=== PATIENT | female | born 1930 | race Caucasian/White ===

== ENCOUNTER 2017-07-03 09:52 | Emergency (ER) | payer OTHER ==
[2017-07-03 10:20] VITALS: BMI 22.4
--- NOTE | 2017-07-03 10:32 | PDOC ---
Attending Attestation - HPI HPI: 07/03/17 11:54 The patient is a 86-year-old female with a significant past medical history of Burkitts-like lymphoma, hypothyroidism, hypertension, congestive heart failure, osteoporosis, hiatal hernia, and cerebrovascular accident, who presents to the emergency department after sustaining a left arm injury s/p fall at [facility] yesterday evening. Patient reports she remembers falling onto the floor while walking back to her room after dinner. She does not recall why or how she fell. Patient and daughter are unsure if there was loss of consciousness. Patient complains of pain, swelling, deformity, and bruising at the left elbow and humerus. XRays of the left upper extremity were taken at [facility] and Tylenol was given there. The daughter reports the patient, who ambulates with a walker at baseline, has developed a left drop foot over the last few months. The patient denies chest pain, shortness of breath, headache and dizziness. The patient denies fever, chills, nausea, vomit, diarrhea, constipation, or urinary changes. - Physicial Exam PE: 07/03/17 11:55 Vitals: Triage Vital signs reviewed General Appearance: no acute distress, well nourished well developed, Head: Atraumatic, normocephalic Eyes: Pupils equal reactive round, extraocular movement intact Neck: Supple;No Nuchal rigidity Chest Wall: Nontender Cardiac: Regular rate and rhythm, no murmurs, no rubs, no gallops, Lungs: Clear to auscultation bilateral, good air movement bilaterally, Abdomen: Soft, nondistended, normal bowel sounds, nontender to palpation Extremities: (+) Left elbow swollen, otherwise neurovascularly intact. No cyanosis or clubbing Skin: Warm and dry, no rashes or lesions, no petechiae Neuro: AOX3; Cranial Nerves 2-12 grossly intact, Sensation intact to all extremities Psych: normal mood, normal affect - Medical Decision Making 07/03/17 14:07 Dr. Arnold/Kingston (ortho) paged at 1:07pm, 1:31pm, 1:42 pm, 2:07 pm. Waiting for call back. 07/03/17 14:17 Ortho returned the call at 2:16pm. Case was discussed. <Lottie Kapoor - Last Filed: 07/03/17 14:17> - Resident Resident Name: Ady Ramos - ED Attending Attestation I have performed the following: I have examined & evaluated the patient, The case was reviewed & discussed with the resident, I agree w/resident's findings & plan, Exceptions are as noted - Medical Decision Making 86-year-old female with a significant past medical history of Burkitts-like lymphoma, hypothyroidism, hypertension, congestive heart failure, osteoporosis, hiatal hernia, and cerebrovascular accident, who presents to the emergency department after sustaining a left arm injury s/p fall at [facility] yesterday evening onto her left elbow with significant swelling to left elbow and left humerus. X-rays ordered labs ordered head CT ordered EKG performed at 1102amdemonstrates rate of 82, rhythm of sinus, axis equal to normal. No ST elevations no T-wave inversions Interpreted by me All other labs and imaging reviewed no acute findings noted Olecranon fracture. Case discussed with Dr. Onofre orthopedics. Normally this is a operative management with this type of fracture however after long discussion with daughter given up to 8-12 weeks of recovery time and the requirement for an active patient in PT daughter feels that patient may not be the best candidate at this time for surgery. At this time will place patient in a posterior splint initiate conservative measures she will follow-up with Dr. Onofre in his office to discuss surgical versus conservative management Greater than 20 minutes spent discussing options with family. Daughter who is healthcare proxy for patient does not want patient to be admitted to hospital overnight she will return to [facility]. They will follow-up with her doctor there they will return to the emergency department for any severe worsening symptoms or for any concerns. <Curtis Storm - Last Filed: 07/03/17 19:10>
--- NOTE | 2017-07-03 10:47 | PDOC ---
History of Present Illness - General History Source: Patient, Family Exam Limitations: No Limitations - History of Present Illness Initial Comments: 07/03/17 10:41 Patient is an 86F with history of lymphoma s/p chemotherapy, hypothyroidism, CVA , HTN, CHF here today complaining of elbow pain after a fall. Patient fell last [facility] at [facility]. Patient states that she was using her walker to move when she fell, but she does not remember what happened to cause her fall. Patient denies any confusion after the fall. Denies chest pain, shortness of breath. Denies head trauma, headache, neck pain. Denies pain in her abdomen, arms, legs, hips, pelvis. <Ady Ramos - Last Filed: 07/03/17 15:35> <Curtis Storm - Last Filed: 07/03/17 17:27> - General Chief Complaint: Injury Stated Complaint: FALL Time Seen by Provider: 07/03/17 10:16 Past History - Past Medical History Cancer: (Burkitt Lymphoma,diffuse large B-Cell lymphoma) COPD: No GI Disorders: Yes (GERD) HTN: Yes Psychiatric Problems: (Failure to thrive) Thyroid Disease: Yes (hypothryroidsm) Other medical history: Osteoporois,Muscle weakness - Suicide/Smoking/Psychosocial Hx Smoking History: Never smoked Information on smoking cessation initiated: No Hx Alcohol Use: No Drug/Substance Use Hx: No Substance Use Type: None <Ady Ramos - Last Filed: 07/03/17 15:35> <Curtis Storm - Last Filed: 07/03/17 17:27> - Past Medical History Allergies/Adverse Reactions: Allergies Allergy/AdvReac Type Severity Reaction Status Date / Time dapsone Allergy Verified 07/03/17 10:43 phenazopyridine Allergy Verified 07/03/17 10:43 Sulfa (Sulfonamide Allergy Verified 07/03/17 10:43 Antibiotics) tetracycline Allergy Verified 07/03/17 10:43 endomethacin Allergy Uncoded 07/03/17 10:43 Home Medications: Ambulatory Orders Acetaminophen [Tylenol] 650 mg PO HS 07/03/17 Aspirin [ASA -] 81 mg PO DAILY 07/03/17 Cholecalciferol (Vitamin D3) [Vitamin D3] 1,000 unit PO DAILY 07/03/17 Cyanocobalamin (Vitamin B-12) [Vitamin B-12] 1,000 mcg PO DAILY 07/03/17 Furosemide 20 mg PO ASDIR 07/03/17 Homatropine HBr 5% Ophth Soln [Isopto Homatropine] 1 drop OD Q12H 07/03/17 Ipratropium 0.02% Nebulizer [Atrovent *Nebulizer*] 0.5 mg IH Q5H PRN 07/03/17 Levothyroxine [Synthroid -] 25 mcg PO DAILY 07/03/17 Lisinopril [Zestril] 7.5 mg PO DAILY 07/03/17 Magnesium 400 mg PO DAILY 07/03/17 Megestrol Acetate 400 mg PO DAILY 07/03/17 Metoprolol Succinate 50 mg PO DAILY 07/03/17 Ramelteon [Rozerem] 8 mg PO HS 07/03/17 Saccharomyces Boulardii [Probiotic] 250 mg PO DAILY 07/03/17 Review of Systems - Review of Systems Comments:: 07/03/17 11:02 GENERAL/CONSTITUTIONAL: No fever or chills. No weakness. CARDIOVASCULAR: No chest pain or shortness of breath RESPIRATORY: No cough, wheezing, or hemoptysis. GASTROINTESTINAL: No nausea, vomiting, diarrhea or constipation. GENITOURINARY: No dysuria, frequency, or change in urination. MUSCULOSKELETAL: Positive for left elbow pain. No neck or back pain. SKIN: No rash NEUROLOGIC: No headache, vertigo, loss of consciousness, or change in strength/ sensation. ENDOCRINE: No increased thirst. No abnormal weight change ALLERGIC/IMMUNOLOGIC: No hives or skin allergy. <Ady Ramos - Last Filed: 07/03/17 15:35> *Physical Exam - Vital Signs Last Vital Signs Temp Pulse Resp BP Pulse Ox 98.6 F 82 17 141/86 95 07/03/17 10:15 07/03/17 10:15 07/03/17 10:15 07/03/17 10:15 07/03/17 10:15 - Physical Exam Comments: 07/03/17 11:03 GENERAL: Awake, alert, and fully oriented, in no acute distress L ARM: Neurovascularly intact distal to injury, ecchymosis over posterior elbow with deformity. Nontender shoulder, wrist. HEAD: No signs of trauma, normocephalic, atraumatic EYES: PERRLA, EOMI, sclera anicteric, conjunctiva clear ENT: Auricles normal inspection, hearing grossly normal, nares patent, oropharynx clear without exudates. Moist mucosa NECK: Normal ROM, supple, no lymphadenopathy, JVD, or masses, no midline tenderness LUNGS: No distress, speaks full sentences, clear to auscultation bilaterally HEART: Regular rate and rhythm, normal S1 and S2, no murmurs, rubs or gallops, peripheral pulses normal and equal bilaterally. ABDOMEN: Soft, nontender, normoactive bowel sounds. No guarding, no rebound. No masses EXTREMITIES OTHER THAN LEFT ARM: Normal inspection, Normal range of motion, no edema. No clubbing or cyanosis. NEUROLOGICAL: Cranial nerves II through XII grossly intact. Normal speech, no focal sensorimotor deficits SKIN: Warm, Dry, normal turgor, no rashes or lesions noted. <Ady Ramos - Last Filed: 07/03/17 15:35> - Vital Signs Last Vital Signs Temp Pulse Resp BP Pulse Ox 98.2 F 85 17 141/80 96 07/03/17 14:31 07/03/17 14:31 07/03/17 14:31 07/03/17 14:31 07/03/17 14:31 <Curtis Storm - Last Filed: 07/03/17 17:27> Procedures - Splinting Splint Location: Left: Elbow Pre-Proc Neuro Vasc Exam: normal Hand-Made Type: orthoglass Splint Type: Yes: Posterior Post-Proc Neuro Vasc Exam: unchanged from pre-exam Brock Bandage: 4" Sling: Yes Complications: No Post splint xray: No Good repositioning: Yes Progress: 07/03/17 15:21 Procedure tolerated without complication <Ady Ramos - Last Filed: 07/03/17 15:35> ED Treatment Course - LABORATORY CBC & Chemistry Diagram: 07/03/17 10:44 07/03/17 10:44 - RADIOLOGY Radiology Studies Ordered: Category Date Time Status CERVICAL SPINE CT W/O CONTR [CT] Stat CT Scan 07/03/17 10:[address] WITHOUT CONTRAST [CT] Stat CT Scan 07/03/17 10:29 Ordered CHEST X-RAY PORTABLE* [RAD] Stat Radiology 07/03/17 10:29 Ordered ELBOW-LEFT [RAD] Stat Radiology 07/03/17 10:29 Ordered FOREARM- LEFT [RAD] Stat Radiology 07/03/17 10:29 Ordered HUMERUS-LEFT [RAD] Stat Radiology 07/03/17 10:29 Ordered SHOULDER-LEFT [RAD] Stat Radiology 07/03/17 10:29 Ordered WRIST W/HAND-LEFT* [RAD] Stat Radiology 07/03/17 10:29 Ordered <Ady Ramos - Last Filed: 07/03/17 15:35> - LABORATORY CBC & Chemistry Diagram: 07/03/17 10:44 07/03/17 10:44 - ADDITIONAL ORDERS Additional order review: Laboratory Results 07/03/17 07/03/17 07/03/17 13:10 10:44 10:44 PT with INR 12.00 H INR 1.06 Sodium 143 Potassium 5.0 Chloride 109 H Carbon Dioxide 22 Anion Gap 12 BUN 35 H Creatinine 1.2 H Creat Clearance w eGFR 42.40 Random Glucose 85 Calcium 8.7 Magnesium 2.2 Total Bilirubin 0.9 AST 28 ALT 20 Alkaline Phosphatase 54 Creatine Kinase 82 Troponin I 0.02 Total Protein 6.1 L Albumin 3.6 Urine Color Ltyellow Urine Appearance Clear Urine pH 6.0 Ur Specific [place] 1.018 Urine Protein Negative Urine Glucose (UA) Negative Urine Ketones Negative Urine Blood Negative Urine Nitrite Negative Urine Bilirubin Negative Urine Urobilinogen Negative Ur Leukocyte Esterase Negative 07/03/17 10:44 RBC 3.41 L MCV 103.9 H MCHC 33.9 RDW 15.9 H MPV 7.8 Neutrophils % 69.3 Lymphocytes % 17.1 Monocytes % 12.8 H Eosinophils % 0.2 Basophils % 0.6 - Medications Given in the ED: ED Medications Discontinued Medications Generic Name Dose Route Start Last Admin Trade Name Freq PRN Reason Stop Dose Admin Acetaminophen 1,000 mg 07/03/17 14:50 07/03/17 15:00 Ofirmev Injection - IVPB 07/03/17 14:51 1,000 mg ONCE ONE Administration Tramadol HCl 50 mg 07/03/17 15:09 07/03/17 15:13 Ultram - PO 07/03/17 15:10 50 mg ONCE ONE Administration <Curtis Storm - Last Filed: 07/03/17 17:27> Medical Decision Making - Medical Decision Making 07/03/17 11:05 Patient is an 86F with history of lymphoma, hypothyroidism, htn, chf, osteoporosis, cva here today with probable left elbow fracture. Patient was fully undressed and examined for additional injuries, no evidence of additional injuries were found. Vital signs stable and normal. History concerning for unknown etiology of fall. Will do cbc, cmp, trop, ekg, cxr, pt/inr, type and screen for possible cardiac etiology. Will evaluate arm with x-rays of shoulder , elbow, wrist. Will also do head and cervical spine CT. EKG shows normal sinus rhythm, normal rate 82. No st elevations/depressions. No significant t wave inversions. Normal ND/QRS/QTc intervals. 07/03/17 12:39 Laboratory Tests 07/03/17 07/03/17 07/03/17 10:44 10:44 10:44 WBC 8.6 Hgb 12.0 Hct 35.5 Plt Count 213 INR 1.06 BUN 35 H Creatinine 1.2 H Creat Clearance w eGFR 42.40 Troponin I 0.02 CBC normal. INR normal. CMP shows decreased kidney function. Trop detectable but not above threshold. XR, CT pending. 07/03/17 13:[address] negative for acute pathology. 07/03/17 13:46 X-rays show fracture of proximal ulna. Shoulder x-ray normal. Chest, wrist pending. 07/03/17 13:59 X-rays of chest and wrist show no acute process. 07/03/17 15:35 Splinted elbow in posterior splint, patient's pain controlled. Placed in splint. <Ady Ramos - Last Filed: 07/03/17 15:35> *DC/Admit/Observation/Transfer - Discharge Dispostion Admit: No <Ady Ramos - Last Filed: 07/03/17 15:35> <Curtis Storm - Last Filed: 07/03/17 17:27> Diagnosis at time of Disposition: Ulna fracture - Discharge Dispostion Disposition: HOME Condition at time of disposition: Stable - Referrals Referrals: Carmine Haas MD [Primary Care Provider] - Cash Onofre MD [Staff Physician] - - Patient Instructions Printed Discharge Instructions: How to Use a Sling, Elbow Fracture Additional Instructions: Please follow up with Dr Onofre from orthopedics next week. Please avoid using your left arm. Please have staff assist with transfers. Out of bed to chair with assistance Use ice 20 min on 20 min off and tylenol as directed on package to help control your pain. Please return if you have any new, worsening, or concerning symptoms. Please follow up with Dr Haas concerning the reason for your fall.
[2017-07-03 11:06] LABS: BASO % 0.6 % (0-2.0); EOS % 0.2 % (0-4.5); HEMATOCRIT 35.5 % (32.4-45.2); LYMPH % 17.1 % (8-40); MCH 35.3 pg (25.7-33.7); MCHC 33.9 g/dl (32.0-36.0); MEAN CELL VOLUME 103.9 fl (80-96); MEAN PLT VOLUME 7.8 fl (7.5-11.1); MONO % 12.8 % (3.8-10.2); NEUT % 69.3 % (42.8-82.8); PLATELET COUNT 213 K/MM3 (134-434); RBC 3.41 M/mm3 (3.60-5.2); RDW 15.9 % (11.6-15.6); WHITE BLOOD COUNT 8.6 K/mm3 (4.0-10.0)
[2017-07-03 11:15] LABS: INR 1.06 (0.82-1.09)
[2017-07-03 11:39] LABS: ALBUMIN 3.6 g/dl (3.4-5.0); ANION GAP 12 (8-16); BILIRUBIN,TOTAL 0.9 mg/dL (0.2-1.0); BLOOD UREA NITROGEN 35 mg/dL (7-18); CALCIUM 8.7 mg/dL (8.5-10.1); CHLORIDE 109 mmol/L (98-107); CO2 22 mmol/L (21-32); CREATININE 1.2 mg/dL (0.55-1.02); GLUCOSE,RANDOM 85 mg/dL (74-106); SGPT/ALT 20 U/L (12-78); SODIUM 143 mmol/L (136-145); TOT PROT 6.1 g/dl (6.4-8.2)
[2017-07-03 11:42] LABS: ALK PHOS 54 U/L (45-117); MAGNESIUM 2.2 mg/dL (1.8-2.4); SGOT/AST 28 U/L (15-37)
[2017-07-03] MEDS ORDERED: traMADol HCL 50 MG TABLET ONE (13:11)
[2017-07-03 13:22] LABS: URINE APPEARANCE CLEAR; URINE BILIRUBIN NEGATIVE (NEGATIVE); URINE BLOOD NEGATIVE (NEGATIVE); URINE COLOR LTYELLOW; URINE GLUCOSE (UA) NEGATIVE (NEGATIVE); URINE KETONE NEGATIVE (NEGATIVE); URINE LEUK ESTERASE NEGATIVE (NEGATIVE); URINE NITRITE NEGATIVE (NEGATIVE); URINE PROTEIN NEGATIVE (NEGATIVE); URINE UROBILINOGEN NEGATIVE mg/dL (0.2-1.0)
[2017-07-03 14:32] VITALS: BP 141/80; PULSE 85; TEMP 98.2
[2017-07-03] MEDS ORDERED: ACETAMINOPHEN 1000 MG/100 ML VIAL (NON FORMULARY) IVPB ONE (14:50)
[2017-07-03] MEDS ORDERED: ACETAMINOPHEN INJECTION 100 ML IVPB ONE (14:53)
[2017-07-03] MEDS ORDERED: traMADol HCL 50 MG TABLET PO ONE (15:09)
--- NOTE | 2017-07-04 10:58 | EKG ---
Test Reason : Blood Pressure : / mmHG Vent. Rate : 082 BPM Atrial Rate : 082 BPM P-R Int : 180 ms QRS Dur : 068 ms QT Int : 398 ms P-R-T Axes : 043 002 060 degrees QTc Int : 464 ms SINUS RHYTHM WITH PREMATURE ATRIAL COMPLEXES OTHERWISE NORMAL ECG NO PREVIOUS ECGS AVAILABLE Confirmed by SHIN CASTILLO MD ([id number]) on 07/04/2017 10:58:00 AM Referred By: Confirmed By:SHIN CASTILLO MD
== END 2017-07-03 19:28 | disposition home or self-care (01) ==
LOC: JER 09:52
PROC: 3E033NZ Introduction of Analgesics, Hypnotics, Sedatives into Peripheral Vein, Percutaneous Approach (ICD-10-PCS; principal; 2017-07-03)
DX: W18.39XA Other fall on same level, initial encounter (principal); Y93.89 Activity, other specified; Y92.129 Unspecified place in nursing home as the place of occurrence of the external cause; C85.90 Non-Hodgkin lymphoma, unspecified, unspecified site; E03.9 Hypothyroidism, unspecified; Z86.73 Personal history of transient ischemic attack (TIA), and cerebral infarction without residual deficits; I10 Essential (primary) hypertension; I50.9 Heart failure, unspecified
CPT/HCPCS: 36415; 70450-TC; 71045-TC-FY; 72125-TC; 73030-TC-LT-FY; 73060-TC-LT-FY; 73070-TC-LT-FY; 73090-TC-LT-FY; 73110-TC-LR-FY; 73130-TC-LR-FY; 80053; 81003; 82550; 83735; 84484; 85025; 85610; 93005; 93010; 99283-25

== ENCOUNTER 2017-07-19 13:47 | Emergency (ER) | payer OTHER ==
[2017-07-19 14:01] VITALS: TEMP 97.8; BMI 24.6
[2017-07-19] MEDS ORDERED: SODIUM CHLORIDE 1,000 ML IV STA (14:23)
[2017-07-19] MEDS ORDERED: FAMOTIDINE IV 20 MG/12 ML VIAL IVPB ONE (14:24)
--- NOTE | 2017-07-19 14:28 | PDOC ---
History of Present Illness - General Chief Complaint: Chest Pain Stated Complaint: CHEST PAIN Time Seen by Provider: 07/19/17 14:16 History Source: Patient Exam Limitations: No Limitations - History of Present Illness Initial Comments: 07/19/17 14:29 Patient is an 87F history of lymphoma s/p chemotherapy, hypothyroidism, CVA, HTN , CHF here today complaining of epigastric pain that started 2 hours ago and was relieved by mylanta. She currently has no symptoms. She describes the pain as epigastric burning sensation. Denies fevers, chills, chest pain, vomiting. She does state that she's been eating less lately because her stomach has been irritated. Patient was see for an olecranon fracture in the ED several weeks ago , and she decided against surgery for the fracture. Denies leg swelling. Past History - Past Medical History Allergies/Adverse Reactions: Allergies Allergy/AdvReac Type Severity Reaction Status Date / Time dapsone Allergy Verified 07/19/17 15:49 phenazopyridine Allergy Verified 07/19/17 15:49 Sulfa (Sulfonamide Allergy Verified 07/19/17 15:49 Antibiotics) tetracycline Allergy Verified 07/19/17 15:49 endomethacin Allergy Uncoded 07/19/17 15:49 Home Medications: Ambulatory Orders Acetaminophen [Tylenol] 650 mg PO HS 07/03/17 Aspirin [ASA -] 81 mg PO DAILY 07/03/17 Cholecalciferol (Vitamin D3) [Vitamin D3] 1,000 unit PO DAILY 07/03/17 Cyanocobalamin (Vitamin B-12) [Vitamin B-12] 1,000 mcg PO DAILY 07/03/17 Furosemide 20 mg PO ASDIR 07/03/17 Homatropine HBr 5% Ophth Soln [Isopto Homatropine] 1 drop OD Q12H 07/03/17 Ipratropium 0.02% Nebulizer [Atrovent *Nebulizer*] 0.5 mg IH Q5H PRN 07/03/17 Levothyroxine [Synthroid -] 25 mcg PO DAILY 07/03/17 Lisinopril [Zestril] 7.5 mg PO DAILY 07/03/17 Magnesium 400 mg PO DAILY 07/03/17 Megestrol Acetate 400 mg PO DAILY 07/03/17 Metoprolol Succinate 50 mg PO DAILY 07/03/17 Ramelteon [Rozerem] 8 mg PO HS 07/03/17 Saccharomyces Boulardii [Probiotic] 250 mg PO DAILY 07/03/17 Acetaminophen [Tylenol] 650 mg PO HS 07/19/17 Metoprolol Succinate 50 mg PO DAILY 07/19/17 Multivitamin [One Daily] 1 cap PO DAILY 07/19/17 Pantoprazole Sodium 40 mg PO DAILY 07/19/17 Saccharomyces Boulardii [Probiotic] 250 mg PO DAILY 07/19/17 Sennosides [Senna] 2 tab PO HS 07/19/17 Cancer: (Burkitt Lymphoma,diffuse large B-Cell lymphoma) COPD: No GI Disorders: Yes (GERD) HTN: Yes Psychiatric Problems: (Failure to thrive) Thyroid Disease: Yes (hypothryroidsm) - Suicide/Smoking/Psychosocial Hx Smoking History: Never smoked Hx Alcohol Use: No Drug/Substance Use Hx: No Substance Use Type: None Review of Systems - Review of Systems Comments:: 07/19/17 14:31 GENERAL/CONSTITUTIONAL: No fever or chills. No weakness. HEAD, EYES, EARS, NOSE AND THROAT: No change in vision. No sore throat. CARDIOVASCULAR: No chest pain or shortness of breath RESPIRATORY: No cough, wheezing, or hemoptysis. GASTROINTESTINAL: No nausea, vomiting, diarrhea or constipation. GENITOURINARY: No dysuria, frequency, or change in urination. MUSCULOSKELETAL: No joint or muscle swelling or pain. No neck or back pain. SKIN: No rash NEUROLOGIC: No headache, vertigo, loss of consciousness, or change in strength/ sensation. ENDOCRINE: No increased thirst. No abnormal weight change ALLERGIC/IMMUNOLOGIC: No hives or skin allergy. *Physical Exam - Vital Signs Last Vital Signs Temp Pulse Resp BP Pulse Ox 97.8 F 113 H 18 104/68 100 07/19/17 13:59 07/19/17 13:59 07/19/17 13:59 07/19/17 13:59 07/19/17 13:59 - Physical Exam Comments: 07/19/17 14:34 GENERAL: Awake, alert, and fully oriented, in arm sling L ARM: Old bruising on hand, wrapped, no pain reported HEAD: No signs of trauma, normocephalic, atraumatic EYES: PERRLA, EOMI, sclera anicteric, conjunctiva clear ENT: Auricles normal inspection, hearing grossly normal, nares patent, oropharynx clear without exudates. Dry mucosa NECK: Normal ROM, supple, no lymphadenopathy, JVD, or masses LUNGS: No distress, speaks full sentences, clear to auscultation bilaterally HEART: Regular rate and rhythm, normal S1 and S2, no murmurs, rubs or gallops, peripheral pulses normal and equal bilaterally. ABDOMEN: Soft, nontender, normoactive bowel sounds. No guarding, no rebound. No masses EXTREMITIES: Normal inspection, Normal range of motion, no edema. No clubbing or cyanosis. NEUROLOGICAL: Cranial nerves II through XII grossly intact. Normal speech, no focal sensorimotor deficits SKIN: Warm, Dry, normal turgor, no rashes or lesions noted. Heart Score/ECG Review - History History: Slightly suspicious - Electrocardiogram EKG: Normal - Age Age: >/= 65 - Risk Factors Risk Factors Heart Score: Yes Hx Hypertension Based on the list above the patient has:: 1-2 risk factors - Troponin Troponin: </= normal limit - Score Heart Score - Total: 3 ED Treatment Course - LABORATORY CBC & Chemistry Diagram: 07/19/17 15:20 07/19/17 15:20 - RADIOLOGY Radiology Studies Ordered: Category Date Time Status CHEST X-RAY PORTABLE* [RAD] Stat Radiology 07/19/17 14:23 Ordered Medical Decision Making - Medical Decision Making 07/19/17 14:36 Patient is 87F with history of NHL, CHF, HTN, recent olecranon fracture here today with epigastric abdominal pain. Pain relieved with mylanta. No pain currently. PE notable for tachycardia and dry mucosa. Believe patient is dehydrated, reported decreased PO intake. Will evaluate with cardiac workup, likely discharge. Will treat with pepcid and fluids. Differential diagnosis is heavily weighted towards gastritis and dehydration. PE and ACS considered, but history not consistent with either. 07/19/17 15:57 EKG shows sinus tachycardia with rate of 107. No st elevations/depressions. No significant t wave abnormalities. No TX/QRS/QTc intervals. 07/19/17 16:01 CXR official read says patient has diaphragmatic hernia. Patient has known history of large hiatal hernia. Believe this is patient's hiatal hernia. No infiltrates. 07/19/17 18:26 Laboratory Tests 07/19/17 07/19/17 07/19/17 15:10 15:20 15:20 WBC 8.1 Hgb 10.7 D Hct 32.1 L Plt Count 247 INR 1.12 Troponin I < 0.02 07/19/17 16:52 WBC Hgb Hct Plt Count INR Troponin I < 0.02 CBC normal, INR normal. Troponin undetectable x2. Patient reports pain has resolved. Tachycardia has resolved. *DC/Admit/Observation/Transfer Diagnosis at time of Disposition: Chest pain, Dehydration - Discharge Dispostion Disposition: HOME Condition at time of disposition: Good Admit: No - Referrals - Patient Instructions Printed Discharge Instructions: DI for Chest Pain, DI for Dehydration -- Adult Additional Instructions: Please return if you have any new, worsening or concerning symptoms. Please follow up with your primary care physician this week. - Post Discharge Activity
[2017-07-19] MEDS ORDERED: SODIUM CHLORIDE 500 ML IV STA (14:29)
--- NOTE | 2017-07-19 14:31 | EKG ---
Test Reason : Blood Pressure : / mmHG Vent. Rate : 107 BPM Atrial Rate : 107 BPM P-R Int : 186 ms QRS Dur : 064 ms QT Int : 340 ms P-R-T Axes : 046 -07 052 degrees QTc Int : 453 ms SINUS TACHYCARDIA POSSIBLE LEFT ATRIAL ENLARGEMENT CANNOT RULE OUT ANTERIOR INFARCT , AGE UNDETERMINED ABNORMAL ECG WHEN COMPARED WITH ECG OF 03-JUL-2017 11:02, PREMATURE ATRIAL COMPLEXES ARE NO LONGER PRESENT Confirmed by KENDY ALCALA, SILVIO ([id number]) on 07/19/2017 2:30:47 PM Referred By: Confirmed By:SILVIO LARRY MD
--- NOTE | 2017-07-19 14:37 | PDOC ---
Attending Attestation - Resident Resident Name: Ady Ramos - ED Attending Attestation I have performed the following: I have examined & evaluated the patient, The case was reviewed & discussed with the resident, I agree w/resident's findings & plan, Exceptions are as noted - HPI HPI: 07/19/17 14:37 87y F hx of lymphoma, thyroidi disease, chf, htn, presents with brief episode of epigastric pain this morning prior to her lunch, there was no radaition, it was sharp, lasting a few minutes, was non exertional, and pt has never had this pain before. There was no associated sob, diaphoesis, fever/chills, cough, fever/chills, cough, cp, sob, nausea/vomiting. GENERAL: The patient is awake, alert, and fully oriented, Nontoxic - in no acute distress. HEAD: Normocephalic, atraumatic. EYES: extraocular movements intact, sclera anicteric, conjunctiva clear. ENT: Normal voice, slightly dry mucous membranes. NECK: Normal range of motion, supple LUNGS: Breath sounds equal, clear to auscultation bilaterally. No wheezes, no rhonchi, no rales. HEART:slightly tachycardic ABDOMEN: Soft, nontender, normoactive bowel sounds. No guarding, no rebound. No CVA tenderness EXTREMITIES: Normal range of motion, no edema, eccymosis on LUE, splint/sling in place NEUROLOGICAL: No facial assymetry, Normal speech, PSYCH: Normal mood, normal affect. SKIN: Warm, Dry, normal turgor, ddx acs, gerd, pt curerntly asypmtomatic will ck labs, ekg, cxr will r/o acs with trops - Physicial Exam PE: 07/21/17 09:02 see above - Medical Decision Making 07/19/17 17:02 trop neg x 2 pt asymptmatic will dc the pt with pmd fu Heart Score/ECG Review - ECG Impressions Comment:: 07/19/17 17:08 Twelve-lead EKG was performed and reviewed by me. There is normal sinus rhythm with a rate of 107 The axis is normal. Abnormal R wave progression
[2017-07-19] MEDS ORDERED: FAMOTIDINE 20 MG/50 ML IVPB 20 MG/50 ML MG IVPB ONE (15:00)
[2017-07-19 15:32] LABS: BASO % 0.4 % (0-2.0); EOS % 0.1 % (0-4.5); HEMATOCRIT 32.1 % (32.4-45.2); HEMOGLOBIN 10.7 GM/dL (10.7-15.3); LYMPH % 14.6 % (8-40); MCHC 33.2 g/dl (32.0-36.0); MEAN CELL VOLUME 102.4 fl (80-96); MEAN PLT VOLUME 7.4 fl (7.5-11.1); MONO % 11.7 % (3.8-10.2); NEUT % 73.2 % (42.8-82.8); PLATELET COUNT 247 K/MM3 (134-434); RBC 3.14 M/mm3 (3.60-5.2); RDW 15.2 % (11.6-15.6); WHITE BLOOD COUNT 8.1 K/mm3 (4.0-10.0)
[2017-07-19 15:47] LABS: INR 1.12 (0.82-1.09); PROTHROMBIN TIME (PATIENT) 12.6 SEC (9.98-11.88)
[2017-07-19 16:04] LABS: ALBUMIN 3.7 g/dl (3.4-5.0); ANION GAP 9 (8-16); BILIRUBIN,TOTAL 0.6 mg/dL (0.2-1.0); BLOOD UREA NITROGEN 50 mg/dL (7-18); CALCIUM 9.3 mg/dL (8.5-10.1); CHLORIDE 110 mmol/L (98-107); CO2 25 mmol/L (21-32); CREATININE 1.4 mg/dL (0.55-1.02); GLUCOSE,RANDOM 110 mg/dL (74-106); MAGNESIUM 2.6 mg/dL (1.8-2.4); SGOT/AST 16 U/L (15-37); SGPT/ALT 23 U/L (12-78); SODIUM 144 mmol/L (136-145); TOT PROT 6.5 g/dl (6.4-8.2)
[2017-07-19 16:06] LABS: ALK PHOS 68 U/L (45-117)
[2017-07-19] MEDS ORDERED: ACETAMINOPHEN 325 MG TABLET (FP) PO ONE (18:06)
[2017-07-19] MEDS ORDERED: ACETAMINOPHEN 325 MG TABLET (FP) ONE (18:19)
[2017-07-19 20:47] VITALS: BP 122/74; PULSE 79
== END 2017-07-19 20:25 ==
LOC: JER 13:47
PROC: 3E0337Z Introduction of Electrolytic and Water Balance Substance into Peripheral Vein, Percutaneous Approach (ICD-10-PCS; principal; 2017-07-19)
PROC: 3E033GC Introduction of Other Therapeutic Substance into Peripheral Vein, Percutaneous Approach (ICD-10-PCS; 2017-07-19)
DX: R07.89 Other chest pain (principal); E86.0 Dehydration; I10 Essential (primary) hypertension; I50.9 Heart failure, unspecified; E03.9 Hypothyroidism, unspecified; Z86.73 Personal history of transient ischemic attack (TIA), and cerebral infarction without residual deficits; Z87.81 Personal history of (healed) traumatic fracture; Z85.72 Personal history of non-Hodgkin lymphomas
CPT/HCPCS: 36415; 71045-TC-FY; 80053; 82550; 83735; 84484; 85025; 85610; 93005; 93010; 99284-25